=== PATIENT | female | born 1940 | race Hispanic/Latino ===

== ENCOUNTER → 2018-03-27 | Outpatient (CLI) | payer MEDICARE | END | disposition home or self-care (01) | LOC: RAH 10:25 | PROVIDERS: ATTEND Orthopaedic Surgery | DX: M75.101 Unspecified rotator cuff tear or rupture of right shoulder, not specified as traumatic (principal); M12.811 Other specific arthropathies, not elsewhere classified, right shoulder; M62.511 Muscle wasting and atrophy, not elsewhere classified, right shoulder; M25.711 Osteophyte, right shoulder | CPT/HCPCS: 73221 ==

== ENCOUNTER → 2018-06-19 | Outpatient (CLI) | payer MEDICARE | END | disposition home or self-care (01) | LOC: RAH 13:33 | PROVIDERS: ATTEND Physical Medicine & Rehabilitation | DX: M51.36 Other intervertebral disc degeneration, lumbar region (principal); M41.85 Other forms of scoliosis, thoracolumbar region; M89.48 Other hypertrophic osteoarthropathy, other site; M48.061 Spinal stenosis, lumbar region without neurogenic claudication | CPT/HCPCS: 72110 ==

== ENCOUNTER → 2018-09-26 | Outpatient (CLI) | payer MEDICARE | END | disposition home or self-care (01) | LOC: RAH 13:30 | PROVIDERS: ATTEND Physical Medicine & Rehabilitation | DX: M51.17 Intervertebral disc disorders with radiculopathy, lumbosacral region (principal); M48.061 Spinal stenosis, lumbar region without neurogenic claudication; M47.816 Spondylosis without myelopathy or radiculopathy, lumbar region | CPT/HCPCS: 72148 ==

== ENCOUNTER → 2019-06-01 | Outpatient (CLI) | payer MEDICARE | END | disposition home or self-care (01) | LOC: SHCH 09:36 | PROVIDERS: ATTEND Internal Medicine Cardiovascular Disease | DX: I51.7 Cardiomegaly (principal); I25.10 Atherosclerotic heart disease of native coronary artery without angina pectoris | CPT/HCPCS: 93306; 93356 ==

== ENCOUNTER → 2019-06-05 | Outpatient (CLI) | payer MEDICARE ==
[~2019-06-05] VITALS: Ht 157.5 cm; Wt 77.1 kg
[~2019-06-05] MED LIST: REGADENOSON 0.4 MG/5 ML PF SYG IVP SCH
== END | disposition home or self-care (01) ==
LOC: SHCH 07:42
PROVIDERS: ATTEND Internal Medicine Cardiovascular Disease
DX: I25.10 Atherosclerotic heart disease of native coronary artery without angina pectoris (principal)
CPT/HCPCS: 78452; 93017; 96374; A9500 ×2; J2785

== ENCOUNTER 2019-06-26 08:32 | Day surgery (SDC) | payer MEDICARE ==
[2019-06-22 09:44] LABS: BASOPHILS % (AUTO) 0.1 % (0.0-5.0); EOSINOPHILS % (AUTO) 0.1 % (0.0-8.0); MEAN CORPUSCULAR HEMOGLOBIN 30.1 pg (27.0-33.0); MEAN CORPUSCULAR HGB CONC 31.8 g/dL (32.0-36.0); MEAN CORPUSCULAR VOLUME 94.7 fL (79-99); MONOCYTES % (AUTO) 6.5 % (3.0-13.0); NEUTROPHILS % (AUTO) 79.3 % (40.0-77.0); PLATELET COUNT (AUTO) 247 K/uL (130-400); RED BLOOD CELL COUNT(AUTO) 4.12 MIL/uL (4.00-5.50); WHITE BLOOD COUNT (AUTO) 11.5 K/uL (4.8-10.8)
[2019-06-22 09:48] VITALS: BP 151/66
[2019-06-22 10:00] LABS: INR 1.02 (0.85-1.15); PARTIAL THROMBOPLASTIN TIME 22.6 SEC (26.3-35.5); PROTHROMBIN TIME 10.7 SEC (9.6-11.6)
[2019-06-22 10:02] LABS: POTASSIUM 4.3 mmol/L (3.5-5.1)
[2019-06-22 10:46] LABS: APPEARANCE,URINE Clear (CLEAR); BILIRUBIN,URINE Negative (NEGATIVE); COLOR,URINE Yellow (YELLOW); GLUCOSE, URINE (UA) Negative (NEGATIVE); KETONES,URINE Negative (NEGATIVE); LEUKOCYTE ESTERASE ,URINE Negative (NEGATIVE); NITRATE,URINE Negative (NEGATIVE); OCCULT BLOOD,URINE Negative (NEGATIVE); PH,URINE 6.5 (5.0-8.0); PROTEIN,URINE POS 2+ mg/dL (NEGATIVE)
[2019-06-22 11:29] LABS: BACTERIA,URINE Many /HPF (None Seen); RBC,URINE 0-1 /HPF (0-1)
--- NOTE | 2019-06-25 13:24 | NUR ---
LABS WBC 11.[address] GODWIN, MESSAGE LEFT WITH CARROLL . AWAITING FOR FURTHER ORDERS IF ANY.
--- NOTE | 2019-06-25 13:54 | NUR ---
LABS RECEIVED CALL BACK PER DR. GODWIN NO FURTHER ORDERS
[2019-06-26] VITALS (9 sets, daily range): BP systolic 122–188; BP diastolic 44–94
[~2019-06-26] VITALS: Ht 157.5 cm; Wt 77.6 kg
[~2019-06-26 08:32] MED LIST changes: +ALPR0.255 PO; +ASPI-556 PO; +BRIM5DRO OU; +CITA10TA7 PO; +CYAN100T45 PO; +DILT180C86 PO; +ERGO500014 PO; +FERR-82 PO; +FURO20TA4 PO; +GABA-531 PO; +LATA7.5D OU; +NITR0.4T50 SL; -REGADENOSON 0.4 MG/5 ML PF SYG IVP SCH; +ROSU10TA28 PO; +SODIUM CHLORIDE 0.9% 500ML 500 ML IV SCH; +TRAM50TA4 PO
--- NOTE | 2019-06-26 11:05 | NUR ---
REPORT REPORT RECEIVED FROM Samuel KHOURY RN. PT SITTING ON EDGE OF BED. DENIES ANY PAIN, SOB. AT BEDSIDE.
[2019-06-26] MEDS ORDERED: FENTANYL CITRATE PF 50 MCG/1 ML 2ML VIAL ONE (11:52)
[2019-06-26] MEDS ORDERED: MIDAZOLAM HCL 1 MG/ML 2ML VIAL ONE (11:52)
[2019-06-26] MEDS ORDERED: LIDOCAINE HCL 2% 20ML ONE (11:52)
[2019-06-26] MEDS ORDERED: IOHEXOL 350 MG/ML 100ML INFUS..BTL IV ONE (11:52)
[2019-06-26] MEDS ORDERED: HEPARIN SODIUM 1000UNIT/ML 10ML VIAL ONE (11:52)
--- NOTE | 2019-06-26 12:00 | NUR ---
PROCEDURE PT TAKEN TO PROCEDURE BY PLAYER DEVELOPMENT MANAGER STAFF.
[2019-06-26] MEDS ORDERED: NITROGLYCERIN 2 MG/VIAL VIAL IV ONE (12:09)
[2019-06-26] MEDS ORDERED: NICARDIPINE HCL 25 MG/10 ML ML IV ONE (12:10)
[2019-06-26] MEDS ORDERED: SODIUM CHLORIDE 0.9% 1000ML 1,000 ML IV ONE (12:34)
[2019-06-26] MEDS ORDERED: HYDRALAZINE HCL 20 MG/ML VIAL ONE (12:54)
[2019-06-26] MEDS ORDERED: LABETALOL HCL 5 MG/ML 20ML VIAL IV ONE (12:59)
[2019-06-26] MEDS ORDERED: ACETAMINOPHEN 325 MG TAB ONE (13:45)
--- NOTE | 2019-06-26 15:02 | NUR ---
DISCHARGE ORAL AND WRITTEN DISCHARGE INSTRUCTIONS GIVEN TO PT AND PTS . BOTH VERBALIZED UNDERSTANDING. NO OTHER QUESTIONS AT THIS TIME.
== END 2019-06-26 16:45 | disposition home or self-care (01) ==
LOC: DAH 08:32
PROVIDERS: ATTEND Internal Medicine Cardiovascular Disease
DX: I25.10 Atherosclerotic heart disease of native coronary artery without angina pectoris (principal); I10 Essential (primary) hypertension; E78.5 Hyperlipidemia, unspecified; M19.90 Unspecified osteoarthritis, unspecified site; Z88.5 Allergy status to narcotic agent; Z88.1 Allergy status to other antibiotic agents; Z88.8 Allergy status to other drugs, medicaments and biological substances; Z79.82 Long term (current) use of aspirin; Z79.899 Other long term (current) drug therapy; Z98.890 Other specified postprocedural states; Z83.3 Family history of diabetes mellitus; Z79.01 Long term (current) use of anticoagulants
CPT/HCPCS: 36415; 71045; 80048; 81001; 85025; 85610; 85730; 93005; 93458; A4215; A4216; A4221; A4222; A4223 ×3; A4606; A4663; C1760; C1894 ×2; J0360; J1644; J2250; J3010; J3490 ×3; J7030; Q9965; Q9967; 99156; 99157

== ENCOUNTER → 2019-09-27 | Outpatient (CLI) | payer MEDICARE ==
[~2019-09-27] MED LIST changes: -CYAN100T45 PO; -SODIUM CHLORIDE 0.9% 500ML 500 ML IV SCH; +[UNRECOGNIZED DRUG - CODE] PO
== END | disposition home or self-care (01) ==
LOC: RAH 14:05
PROVIDERS: ATTEND Physical Medicine & Rehabilitation
DX: M51.26 Other intervertebral disc displacement, lumbar region (principal); M54.2 Cervicalgia
CPT/HCPCS: 72141; 72148

== ENCOUNTER → 2019-11-02 | Outpatient (CLI) | payer MEDICARE | END | disposition home or self-care (01) | DX: R60.9 Edema, unspecified (principal) ==

== ENCOUNTER 2020-02-22 12:01 | Inpatient (IN) | payer MEDICARE ==
[~2020-02-22] VITALS: Ht 157.5 cm; Wt 75.5 kg
[~2020-02-22 12:01] MED LIST changes: +CYAN100T45 PO; -[UNRECOGNIZED DRUG - CODE] PO
[2020-02-22 13:00] LABS: BASOPHILS % (AUTO) 0.4 % (0.0-5.0); EOSINOPHILS % (AUTO) 0.7 % (0.0-8.0); HEMATOCRIT 36.3 % (36-48); LYMPHOCYTES % (AUTO) 19.7 % (21.0-51.0); MEAN CORPUSCULAR HEMOGLOBIN 30.9 pg (27.0-33.0); MEAN CORPUSCULAR HGB CONC 33.1 g/dL (32.0-36.0); MEAN CORPUSCULAR VOLUME 93.6 fL (79-99); MONOCYTES % (AUTO) 6.2 % (3.0-13.0); NEUTROPHILS % (AUTO) 72.6 % (40.0-77.0); PLATELET COUNT (AUTO) 220 K/uL (130-400); RED BLOOD CELL COUNT(AUTO) 3.88 MIL/uL (4.00-5.50); RED CELL DISTRIBUTION WIDTH 13.2 % (11.0-15.5); WHITE BLOOD COUNT (AUTO) 9.6 K/uL (4.8-10.8)
[2020-02-22 13:15] LABS: INR 0.97 (0.85-1.15); PARTIAL THROMBOPLASTIN TIME 22.5 SEC (26.3-35.5); PROTHROMBIN TIME 10.5 SEC (9.6-11.6)
[2020-02-22 13:16] LABS: POTASSIUM 3.3 mmol/L (3.5-5.1)
[2020-02-22 13:22] LABS: ALBUMIN 3.5 g/dL (3.5-5.0); BILIRUBIN,TOTAL 0.3 mg/dL (0.2-1.0); TOTAL PROTEIN, SERUM 7.1 g/dL (6.0-8.3)
[2020-02-22] MEDS ORDERED: SODIUM CHLORIDE 0.9% 250 ML IV ONE (13:37)
[2020-02-22] MEDS ORDERED: ACETAMINOPHEN 325 MG TAB PO PRN ×2 (16:00)
[2020-02-22] MEDS ORDERED: MORPHINE SULFATE 2 MG/ML 1ML SYG IV PRN (16:00)
[2020-02-22] MEDS ORDERED: MAG HYDROX/AL HYDROX/SIMETH ES 30 ML SUSP UDCUP PO PRN (16:00)
[2020-02-22] MEDS ORDERED: ZOLPIDEM TARTRATE 5 MG TAB PO PRN (16:00)
[2020-02-22] MEDS ORDERED: NITROGLYCERIN 0.4 MG SL TAB SL PRN (16:00)
[2020-02-22] MEDS ORDERED: LACTULOSE 20 GM/30 ML UDCUP PO PRN (16:00)
[2020-02-22] MEDS: SODIUM CHLORIDE 0.9% 1000ML 1,000 ML IV SCH (16:00)
[2020-02-22] MEDS ORDERED: HYDRALAZINE HCL 20 MG/ML VIAL IV PRN (16:00)
[2020-02-22] MEDS ORDERED: ONDANSETRON HCL 4 MG/2 ML VIAL IV PRN (16:00)
[2020-02-22 16:59] LABS: CHOLESTEROL 168 mg/dL (<200); HDL CHOLESTEROL 127 mg/dL (35-85); LDL DIRECT 67 mg/dL (0-99); TRIGLYCERIDES 94 mg/dL (30-200)
[2020-02-22 18:44] LABS: INR 0.93 (0.85-1.15); PARTIAL THROMBOPLASTIN TIME 22.2 SEC (26.3-35.5); PROTHROMBIN TIME 10.1 SEC (9.6-11.6)
[2020-02-22] MEDS ORDERED: METOPROLOL TARTRATE 25 MG TAB PO SCH (21:00)
[2020-02-22] MEDS ORDERED: FAMOTIDINE/PF 20 MG/2 ML VIAL IV ONE (22:34)
[2020-02-22] MEDS ORDERED: METOPROLOL TARTRATE 25 MG TAB ONE (22:34)
[2020-02-22] MEDS ORDERED: FAMOTIDINE 20MG TAB 20 MG TAB ONE (22:43)
[2020-02-23 01:25] VITALS: BP 160/61
[2020-02-23] MEDS: SODIUM CHLORIDE 0.9% 1000ML 1,000 ML IV SCH ×3 (01:32→21:53)
[2020-02-23] MEDS ORDERED: CETI10TA57 PO (01:47)
[2020-02-23] MEDS ORDERED: OMEP20TA25 PO (01:47)
[2020-02-23] MEDS ORDERED: HYDR-4153 PO (01:47)
[2020-02-23 03:59] VITALS: BP 177/83
[2020-02-23] MEDS ORDERED: POTASSIUM CHLORIDE 10MEQ/100ML 100 ML IV PRN (04:45)
[2020-02-23] MEDS ORDERED: LIDOCAINE HCL-MPF 1% 2ML VIAL IV PRN (04:45)
[2020-02-23] MEDS ORDERED: POTASSIUM CHLORIDE 10% ELIXIR 20 MEQ/15 ML UDCUP PO PRN (04:45)
[2020-02-23] MEDS ORDERED: ALPRAZOLAM 0.25 MG TABLET PO PRN (05:45)
[2020-02-23 06:15] LABS: BASOPHILS % (AUTO) 0.4 % (0.0-5.0); EOSINOPHILS % (AUTO) 1.4 % (0.0-8.0); LYMPHOCYTES % (AUTO) 34.9 % (21.0-51.0); MEAN CORPUSCULAR HEMOGLOBIN 30.8 pg (27.0-33.0); MEAN CORPUSCULAR HGB CONC 33.4 g/dL (32.0-36.0); MEAN CORPUSCULAR VOLUME 92.2 fL (79-99); MONOCYTES % (AUTO) 5.4 % (3.0-13.0); NEUTROPHILS % (AUTO) 57.7 % (40.0-77.0); PLATELET COUNT (AUTO) 231 K/uL (130-400); RED BLOOD CELL COUNT(AUTO) 4.12 MIL/uL (4.00-5.50); RED CELL DISTRIBUTION WIDTH 13.4 % (11.0-15.5); WHITE BLOOD COUNT (AUTO) 8.1 K/uL (4.8-10.8)
[2020-02-23] MEDS ORDERED: FAMOTIDINE/PF 20 MG/2 ML VIAL IV SCH (09:00)
[2020-02-23 09:02] VITALS: BP 162/76
[2020-02-23] MEDS: FUROSEMIDE 20 MG TABLET PO SCH ×2 (09:22→21:48)
[2020-02-23] MEDS: HYDRALAZINE HCL 25 MG TABLET PO SCH ×2 (09:22→21:49)
[2020-02-23] MEDS: ASPIRIN 81MG TAB.CHEW PO SCH (09:22)
[2020-02-23] MEDS: POTASSIUM CHLORIDE 20 MEQ ERTAB PO PRN ×2 (09:24→13:30)
[2020-02-23] MEDS: CETIRIZINE HCL 5 MG TABLET PO SCH (09:24)
[2020-02-23] MEDS: TRAMADOL HCL 50 MG TABLET PO SCH (09:24)
[2020-02-23] MEDS: ENOXAPARIN SODIUM 80 MG/0.8 ML SQ SCH (09:25)
[2020-02-23] MEDS: PANTOPRAZOLE SODIUM 40 MG TABLET.DR PO SCH (09:25)
[2020-02-23 12:20] VITALS: BP 135/79
[2020-02-23 18:32] VITALS: BP 133/73
[2020-02-23 20:00] VITALS: BP 158/88
[2020-02-24] VITALS: BP 148/66
[2020-02-24 04:00] VITALS: BP 142/62
[2020-02-24 05:59] LABS: BASOPHILS % (AUTO) 0.5 % (0.0-5.0); EOSINOPHILS % (AUTO) 2.9 % (0.0-8.0); HEMATOCRIT 36.3 % (36-48); LYMPHOCYTES % (AUTO) 46.4 % (21.0-51.0); MEAN CORPUSCULAR HEMOGLOBIN 30.8 pg (27.0-33.0); MEAN CORPUSCULAR HGB CONC 33.1 g/dL (32.0-36.0); MEAN CORPUSCULAR VOLUME 93.3 fL (79-99); MONOCYTES % (AUTO) 4.5 % (3.0-13.0); NEUTROPHILS % (AUTO) 45.4 % (40.0-77.0); PLATELET COUNT (AUTO) 212 K/uL (130-400); RED BLOOD CELL COUNT(AUTO) 3.89 MIL/uL (4.00-5.50); RED CELL DISTRIBUTION WIDTH 13.8 % (11.0-15.5); WHITE BLOOD COUNT (AUTO) 5.8 K/uL (4.8-10.8)
[2020-02-24 06:17] LABS: CARBON DIOXIDE 28 mmol/L (21-32); CHLORIDE 109 mmol/L (101-111); CREATININE 0.9 mg/dL (0.5-1.5); GLOMERULAR FILTR. RATE CALC 64 mL/min (>60); GLUCOSE,RANDOM 93 mg/dL (70-105); POTASSIUM 3.7 mmol/L (3.5-5.1); SODIUM SERUM 142 mmol/L (136-145); UREA NITROGEN, BLOOD 16 mg/dL (7-18)
--- NOTE | 2020-02-24 08:00 | NUR ---
cm note pt resides at home with spouse independent with ambulation, except for uses cane, no home services. dc plan is back to home .no dc needs. Addendum: 02/24/20 at 1746 by ASMITA COSTA CM Amended: Links added.
[2020-02-24] MEDS: PANTOPRAZOLE SODIUM 40 MG TABLET.DR PO SCH (08:47)
[2020-02-24] MEDS: ASPIRIN 81MG TAB.CHEW PO SCH (08:47)
[2020-02-24] MEDS: CETIRIZINE HCL 5 MG TABLET PO SCH (08:48)
[2020-02-24] MEDS: FUROSEMIDE 20 MG TABLET PO SCH (08:48)
[2020-02-24] MEDS: HYDRALAZINE HCL 25 MG TABLET PO SCH (08:48)
[2020-02-24] MEDS: ENOXAPARIN SODIUM 80 MG/0.8 ML SQ SCH (08:51)
[2020-02-24] MEDS: POTASSIUM CHLORIDE 20 MEQ ERTAB PO PRN ×2 (08:52→13:56)
[2020-02-24] MEDS: TRAMADOL HCL 50 MG TABLET PO SCH ×2 (08:52→12:44)
[2020-02-24] MEDS: SODIUM CHLORIDE 0.9% 1000ML 1,000 ML IV SCH (08:54)
--- NOTE | 2020-02-24 15:08 | NUR ---
PT PREPARED FOR DISCHARGE. TELEMETRY AND IV REMOVED W/O DIFFICULTY OR COMPLICATION. PT AND STATES UNDERSTANDING OF DISCHARGE INSTRUCTIONS INCLUDING STOPPING GABAPENTIN AND FOLLOW UP APPTS WITH DR ADAMS AND PCP. PT SON ALSO UNDERSTANDS DISCHARGE INSTRUCTIONS. PT DISMISSED BY W/C IN GOOD CONDITION ACCOMPANIED BY HER
== END 2020-02-24 15:15 | disposition home or self-care (01) | DRG 311 ==
LOC: EDH 12:01 → EDHIP 15:54 → 3DH 02-23 00:25
PROVIDERS: ADMIT Hospitalist; ATTEND Hospitalist
DX: I20.0 Unstable angina (principal); N17.9 Acute kidney failure, unspecified; E86.9 Volume depletion, unspecified; E87.6 Hypokalemia; E11.9 Type 2 diabetes mellitus without complications; I10 Essential (primary) hypertension; I95.9 Hypotension, unspecified; T46.3X5A Adverse effect of coronary vasodilators, initial encounter; I49.3 Ventricular premature depolarization; Z88.5 Allergy status to narcotic agent; Z90.49 Acquired absence of other specified parts of digestive tract; Z88.1 Allergy status to other antibiotic agents; Z88.8 Allergy status to other drugs, medicaments and biological substances; Y92.89 Other specified places as the place of occurrence of the external cause
CPT/HCPCS: 36415; 71045; 80048; 80053; 80061; 82550; 83735; 84145; 84484; 85025; 85378; 85610; 85730; 93005; 93306; 93356; 93880; G0378; J1650; J3490; J7050

== ENCOUNTER → 2021-03-25 | Outpatient (CLI) | payer OTHER ==
[~2021-03-25] MED LIST changes: -BRIM5DRO OU; +CETI10TA57 PO; -CITA10TA7 PO; -CYAN100T45 PO; -DILT180C86 PO; -ERGO500014 PO; -GABA-531 PO; +HYDR-4153 PO; -LATA7.5D OU; +OMEP20TA25 PO
== END | disposition home or self-care (01) ==
LOC: OIH 10:52
PROVIDERS: ATTEND Internal Medicine
DX: M19.012 Primary osteoarthritis, left shoulder (principal)
CPT/HCPCS: 73030

== ENCOUNTER → 2021-04-09 | Outpatient (CLI) | payer OTHER | END | disposition home or self-care (01) | LOC: OIH 13:23 | PROVIDERS: ATTEND Internal Medicine | DX: M17.12 Unilateral primary osteoarthritis, left knee (principal) | CPT/HCPCS: 73560 ==

== ENCOUNTER → 2021-09-22 | Outpatient (CLI) | payer OTHER, MEDICARE ==
[~2021-09-22] MED LIST changes: +OMEP20TA20 PO; -OMEP20TA25 PO
== END | disposition home or self-care (01) ==
LOC: RAH 13:45
PROVIDERS: ATTEND Physical Medicine & Rehabilitation
DX: I70.213 Atherosclerosis of native arteries of extremities with intermittent claudication, bilateral legs (principal)
CPT/HCPCS: 93925

== ENCOUNTER → 2021-12-23 | Outpatient (CLI) | payer OTHER, MEDICARE | END | disposition home or self-care (01) | LOC: RAH 09:31 | PROVIDERS: ATTEND Physician Assistant | DX: M54.51 Vertebrogenic low back pain (principal); M62.81 Muscle weakness (generalized); M99.05 Segmental and somatic dysfunction of pelvic region | CPT/HCPCS: 72114; 73522 ==

== ENCOUNTER 2022-05-21 18:40 | Emergency (ER) | payer OTHER, MEDICARE ==
[~2022-05-21] VITALS: Ht 157.5 cm; Wt 80.7 kg
[2022-05-21] MEDS ORDERED: IBUP-2076 PO (20:27)
[2022-05-21 20:39] VITALS: BP 162/58
== END 2022-05-21 20:51 ==
LOC: EDH 18:40
DX: S80.02XA Contusion of left knee, initial encounter (principal); Z88.0 Allergy status to penicillin; Z88.1 Allergy status to other antibiotic agents; Z88.2 Allergy status to sulfonamides; Z88.5 Allergy status to narcotic agent; Z88.8 Allergy status to other drugs, medicaments and biological substances; Z79.899 Other long term (current) drug therapy; Z79.82 Long term (current) use of aspirin; W01.0XXA Fall on same level from slipping, tripping and stumbling without subsequent striking against object, initial encounter; Y93.01 Activity, walking, marching and hiking; Y92.29 Other specified public building as the place of occurrence of the external cause; Y99.8 Other external cause status
CPT/HCPCS: 73562

== ENCOUNTER → 2022-08-31 | Outpatient (CLI) | payer OTHER, MEDICARE ==
[~2022-08-31] MED LIST changes: +IBUP-2076 PO
== END | disposition home or self-care (01) ==
LOC: SHCH 08:05
PROVIDERS: ATTEND Internal Medicine Cardiovascular Disease
DX: I11.9 Hypertensive heart disease without heart failure (principal); I25.10 Atherosclerotic heart disease of native coronary artery without angina pectoris; E78.5 Hyperlipidemia, unspecified
CPT/HCPCS: 93306

== ENCOUNTER → 2022-09-13 | Outpatient (CLI) | payer OTHER, MEDICARE ==
[2022-09-13 12:44] LABS: CREATININE 1.1 mg/dL (0.5-1.5); MAGNESIUM 2.1 mg/dL (1.80-2.40); POTASSIUM 4.4 mmol/L (3.5-5.1)
== END | disposition home or self-care (01) ==
LOC: LAB 08:45
PROVIDERS: ATTEND Internal Medicine Cardiovascular Disease
DX: I25.10 Atherosclerotic heart disease of native coronary artery without angina pectoris (principal); R09.89 Other specified symptoms and signs involving the circulatory and respiratory systems; I10 Essential (primary) hypertension
CPT/HCPCS: 36415; 80048; 83735; 83880

== ENCOUNTER → 2022-09-23 | Outpatient (CLI) | payer OTHER, MEDICARE ==
[~2022-09-23] MED LIST changes: +IOHEXOL 350 MG/ML 100ML INFUS..BTL IV ONE
== END | disposition home or self-care (01) ==
LOC: RAH 09:31
PROVIDERS: ATTEND Internal Medicine Cardiovascular Disease
DX: I25.10 Atherosclerotic heart disease of native coronary artery without angina pectoris (principal); M47.815 Spondylosis without myelopathy or radiculopathy, thoracolumbar region
CPT/HCPCS: 75574; Q9967

== ENCOUNTER 2023-07-25 04:52 | Emergency (ER) | payer OTHER, MEDICARE ==
[~2023-07-25] VITALS: Ht 157.5 cm; Wt 82.6 kg
[~2023-07-25 04:52] MED LIST changes: -HYDR-4153 PO; +HYDR25TA67 PO; -IOHEXOL 350 MG/ML 100ML INFUS..BTL IV ONE
[2023-07-25] MEDS ORDERED: BRIM5DRO21 OP (05:24)
[2023-07-25] MEDS ORDERED: FURO20TA4 PO (05:25)
[2023-07-25] MEDS ORDERED: GABA300C PO (05:26)
[2023-07-25] MEDS ORDERED: LATA2.5D14 OP (05:27)
[2023-07-25] MEDS ORDERED: GABA100C PO (05:27)
[2023-07-25] MEDS ORDERED: LORA0.5T83 PO (05:29)
[2023-07-25] MEDS ORDERED: MELO-108 PO (05:29)
[2023-07-25] MEDS ORDERED: PANT40GR PO (05:30)
[2023-07-25] MEDS ORDERED: QUET50TA24 PO (05:31)
[2023-07-25] MEDS ORDERED: ERGO500093 PO (05:34)
[2023-07-25 05:38] LABS: ALBUMIN 3.8 g/dL (3.5-5.0); BILIRUBIN,TOTAL 0.4 mg/dL (0.2-1.0); CREATININE 1.1 mg/dL (0.5-1.0); POTASSIUM 3.8 mmol/L (3.5-5.1); TOTAL PROTEIN, SERUM 7.6 g/dL (6.0-8.3)
[2023-07-25 06:10] LABS: BASOPHILS # (AUTO) 0.03 K/uL (0.00-0.20); BASOPHILS % (AUTO) 0.2 % (0.0-5.0); EOSINOPHILS # (AUTO) 0.17 K/uL (0.00-0.70); EOSINOPHILS % (AUTO) 1.1 % (0.0-8.0); HEMATOCRIT 35.2 % (36-48); IMMATURE GRANULOCYTE ABSOLUTE 0.09 K/uL (0-1); LYMPHOCYTES # (AUTO) 1.9 K/uL (1.0-4.8); LYMPHOCYTES % (AUTO) 12.6 % (21.0-51.0); MEAN CORPUSCULAR HEMOGLOBIN 31.9 pg (27.0-33.0); MEAN CORPUSCULAR HGB CONC 34.1 g/dL (32.0-36.0); MEAN CORPUSCULAR VOLUME 93.6 fL (79-99); MONOCYTES % (AUTO) 6.5 % (3.0-13.0); NEUTROPHILS # (AUTO) 11.7 K/uL (1.8-7.7); PLATELET COUNT (AUTO) 278 K/uL (130-400); RED BLOOD CELL COUNT(AUTO) 3.76 MIL/uL (4.00-5.50); RED CELL DISTRIBUTION WIDTH 12.9 % (11.0-15.5); WHITE BLOOD COUNT (AUTO) 14.9 K/uL (4.8-10.8)
[2023-07-25 08:50] VITALS: BP 165/72; PULSE 73; RESP 18; O2SAT 97
[2023-07-25 08:55] LABS: APPEARANCE,URINE CLEAR (CLEAR); BILIRUBIN,URINE NEGATIVE (NEGATIVE); COLOR,URINE LIGHT-YELLOW (YELLOW); GLUCOSE, URINE (UA) NEGATIVE (NEGATIVE); KETONES,URINE NEGATIVE (NEGATIVE); LEUKOCYTE ESTERASE ,URINE 250 Leu/uL (NEGATIVE); NITRATE,URINE NEGATIVE (NEGATIVE); OCCULT BLOOD,URINE NEGATIVE (NEGATIVE); PH,URINE 5.5 (5.0-8.0); PROTEIN,URINE 50 mg/dL (NEGATIVE); UROBILINOGEN,URINE 0.2 mg/dL (0.2-1.0)
[2023-07-25 09:11] LABS: ADD UA MICROSCOPIC YES
[2023-07-25 09:12] LABS: BACTERIA,URINE RARE /HPF (None Seen); MUCUS,URINE RARE LPF (None Seen); RBC,URINE 0-1 /HPF (0-1); SQUAMOUS EPITHELIAL CELL,UR RARE /HPF (0-2)
== END 2023-07-25 09:05 | disposition home or self-care (01) ==
LOC: EDH 04:52
DX: S09.90XA Unspecified injury of head, initial encounter (principal); K52.9 Noninfective gastroenteritis and colitis, unspecified; A05.9 Bacterial foodborne intoxication, unspecified; E78.00 Pure hypercholesterolemia, unspecified; F03.90 Unspecified dementia, unspecified severity, without behavioral disturbance, psychotic disturbance, mood disturbance, and anxiety; I10 Essential (primary) hypertension; I25.10 Atherosclerotic heart disease of native coronary artery without angina pectoris; K21.9 Gastro-esophageal reflux disease without esophagitis; Z79.1 Long term (current) use of non-steroidal anti-inflammatories (NSAID); Z79.82 Long term (current) use of aspirin; Z79.899 Other long term (current) drug therapy; Z88.0 Allergy status to penicillin; Z88.1 Allergy status to other antibiotic agents; Z88.2 Allergy status to sulfonamides; Z88.5 Allergy status to narcotic agent; Z90.49 Acquired absence of other specified parts of digestive tract; W18.39XA Other fall on same level, initial encounter; Y93.01 Activity, walking, marching and hiking; Y92.89 Other specified places as the place of occurrence of the external cause; Y99.8 Other external cause status
CPT/HCPCS: 36415; 70450; 74176; 80053; 81001; 83690; 85025; 87077; 87088; 87186

== ENCOUNTER → 2024-02-04 | Outpatient (CLI) | payer OTHER, MEDICARE ==
[~2024-02-04] MED LIST changes: +BRIM5DRO21 OP; +ERGO500093 PO; +GABA100C PO; +GABA300C PO; +LATA2.5D14 OP; +LORA0.5T83 PO; +MELO-108 PO; +PANT40GR PO; +QUET50TA24 PO; -ROSU10TA28 PO; +ROSU10TA72 PO
== END | disposition home or self-care (01) ==
LOC: SHCH 12:11
PROVIDERS: ATTEND Internal Medicine Cardiovascular Disease
DX: I73.9 Peripheral vascular disease, unspecified (principal); R60.9 Edema, unspecified; K21.9 Gastro-esophageal reflux disease without esophagitis
CPT/HCPCS: 93925

== ENCOUNTER 2024-05-28 16:15 | Emergency (ER) | payer OTHER, MEDICARE ==
[~2024-05-28] VITALS: Ht 157.5 cm; Wt 77.1 kg
--- NOTE | 2024-05-28 16:33 | ERN ---
ED Note History of Present Illness Stated Complaint: OTHER Chief Complaint: Other Problems Time Seen by MD: 16:26 Dictation: PATIENT IS AN 83-YEAR-OLD FEMALE COMING IN FROM A LOCAL PRIMARY CARE DOCTOR'S OFFICE FEELING SHAKY AND HAVING CHILLS THIS MORNING. SHE STATES IT GOT BETTER IN THE EARLY AFTERNOON AND THEN CAME BACK LATER THIS AFTERNOON. SHE ALSO STATES SHE IS HAVING SOME RIGHT LATERAL ANTERIOR THIGH AND LEG PAIN. DENIES ANY RASH NO FEVER NO NAUSEA VOMITING NO CHEST PAIN NO BACK PAIN NO SOB. Allergies: Coded Allergies: Nitrofurantoin Macrocrystal (Unverified Allergy, Intermediate, RASH, ITCHING, 08/27/11) ciprofloxacin (Unverified Allergy, Intermediate, RASH, ITCHING, 08/27/11) moxifloxacin HCl (Unverified Allergy, Intermediate, RASH,ITCHING, 08/27/11) codeine (Unverified Allergy, Mild, FAINTING, 08/27/11) amoxicillin (Unverified Allergy, Unknown, 06/22/19) escitalopram (Unverified Allergy, Unknown, 07/25/23) linaclotide (Unverified Allergy, Unknown, 07/25/23) loratadine (Unverified Allergy, Unknown, 07/25/23) pseudoephedrine (Unverified Allergy, Unknown, 07/25/23) sulfamethoxazole (Unverified Allergy, Unknown, 06/22/19) trimethoprim (Unverified Allergy, Unknown, 06/22/19) Home Meds Active Scripts Ibuprofen (Ibuprofen) 400 Mg Tablet, 400 MG PO TIDP, #30 TAB Prov:LAWRENCE DAMON MD 05/21/22 Reported Medications Ergocalciferol (Vitamin D2) (Vitamin D2) 1,250 Mcg (64757 Unit) Capsule, 1250 MCG PO QWEEK, CAP 07/25/23 Quetiapine Fumarate (Quetiapine Fumarate) 50 Mg Tablet, 50 MG PO HS, TAB 07/25/23 Pantoprazole Sodium (Pantoprazole Sodium) 40 Mg Granpkt.dr, 40 MG PO AD PRN for ABDOMINAL PAIN, PACK 07/25/23 Meloxicam (Meloxicam) 15 Mg Tablet, 15 MG PO DAILY, TAB 07/25/23 Lorazepam (Ativan) 0.5 Mg Tablet, 0.5 MG PO AD PRN for ANXIETY/AGITATION, TAB 07/25/23 Latanoprost (Latanoprost) 0.005 % Drops, 2.5 ML OP BID, DROP 07/25/23 Gabapentin (Neurontin) 100 Mg Capsule, 100 MG PO TID PRN for PAIN, CAP 07/25/23 Gabapentin (Neurontin) 300 Mg Capsule, 300 MG PO HS, CAP 07/25/23 Furosemide (Furosemide) 20 Mg Tablet, 20 MG PO DAILY, TAB 07/25/23 Brimonidine Tartrate/Timolol (Brimonidine-Timolol 0.2%-0.5%) 0.2 %-0.5 % Drops, 5 ML OP BID, DROP 07/25/23 Cetirizine HCl (Cetirizine HCl) 10 Mg Tablet, 10 MG PO DAILY, TAB 02/23/20 Hydralazine HCl (Hydralazine HCl) 25 Mg Tablet, 25 MG PO BID, TAB 02/23/20 Omeprazole (Omeprazole) 20 Mg Tablet.dr, 20 MG PO DAILY, TAB 02/23/20 Aspirin (Aspir 81) 81 Mg Tablet.dr, 81 MG PO DAILY, TAB 06/22/19 Tramadol Hcl (Tramadol HCl) 50 Mg Tablet, 50 MG PO DAILY, TAB 06/22/19 Furosemide (Furosemide) 20 Mg Tablet, 20 MG PO BID, TAB 06/22/19 Rosuvastatin Calcium (Rosuvastatin Calcium) 10 Mg Tablet, 10 MG PO DAILY, TAB 06/22/19 Nitroglycerin (Nitroglycerin) 0.4 Mg Tab.subl, 0.4 MG SL AD PRN for CHEST PAIN, TAB.SL 06/22/19 Ferrous Sulfate (Iron) 325 Mg Tablet, 325 MG PO DAILY, TAB 06/22/19 Alprazolam (Alprazolam) 0.25 Mg Tablet, 1-2 TAB PO BID PRN for ANXIETY/AGITATION, TAB 06/22/19 Past Medical History Past Medical History: Anxiety, Diabetes-Type II, High Cholesterol, Hypertension Additional Past Medical Hx: VIT D DEF, HARD OF HEARING Surgical History: Other Surgical History Other: R KNEE SX Social History: Lives in Assisted Living History: Not Applicable RN Note Reviewed/Agreed w/PFSH: Yes Review of System Dictation CONSTITUTIONAL: NEGATIVE EXCEPT FOR HPI WEEK/SHAKY/CHILLS HEAD/FACE: NEGATIVE EXCEPT FOR HPI EENT: NEGATIVE EXCEPT FOR HPI RESPIRATORY: NEGATIVE EXCEPT FOR HPI GASTROINTESTINAL/ABDOMINAL: NEGATIVE EXCEPT FOR HPI GENITOURINARY: NEGATIVE EXCEPT FOR HPI MUSCULOSKELETAL: NEGATIVE EXCEPT FOR HPI RIGHT LATERAL THIGH PAIN INTEGUMENTARY: NEGATIVE EXCEPT FOR HPI NEUROLOGICAL/PSYCH: NEGATIVE EXCEPT FOR HPI HEMATOLOGIC/LYMPHATIC: NEGATIVE EXCEPT FOR HPI ALL SYSTEMS NEGATIVE, EXCEPT NOTED ABOVE. 13 POINT REVIEW OF SYSTEMS ASSESSED AND ALL NEGATIVE EXCEPT FOR ABOVE. Initial Vital Sign VS Vital Signs Date Time Temp Pulse Resp B/P (MAP) Pulse Ox O2 Delivery O2 Flow Rate FiO2 05/28/24 16:18 97.9 81 16 173/75 96 Room Air 0 05/28/24 16:59 21 Physical Exam Dictation VITAL SIGNS REVIEWED GENERAL APPEARANCE: ALERT, ORIENTED X 3ONLY FOCAL PAIN IS RIGHT LATERAL THIGH PAIN HEAD AND FACE: NON-TRAUMATIC. EYES: PERRL, PINK CONJUNCTIVAS, EYELID NO TRAUMA, ANTERIOR CHAMBER WITH ARCUS SENILIS. EARS: PINNAS INTACT AND NO SIGNS OF TRAUMA OR ERYTHEMA EAR CANALS CLEAR AND NO DISCHARGE TM NO ERYTHEMA NOSE: NO DISCHARGE, NO BLEEDING. OROPHARYNX: MOUTH NORMAL, TONGUE PINK, PHARYNX CLEAR,NO ERYTHEMA, TONSILS NO EXUDATES, NO ABSCESSES NOTED, MUCOUS MEMBRANE MOIST NECK: SUPPLE, NON-TENDER, NO THYROMEGALY, NO MASSES, NO JVD, NO BRUITS BREAST:DEFERRED CHEST:NO TENDERNESS, NO CREPITUS, NO PARADOXICAL MOVEMENT, NO RETRACTIONS LUNGS:CLEAR, WELL-VENTILATED, SYMMETRIC, NO RALES, NO WHEEZING, NO RHONCHI, NO STRIDOR, GOOD BREATH SOUNDS BILATERALLY HEART: REGULAR RATE, REGULAR RHYTHM, NO MURMUR, NO GALLOPS VASCULAR: NO PERIPHERAL EDEMA, ABDOMEN: SOFT, POSITIVE BOWEL SOUNDS, NONDISTENDED, NO GUARDING, NONTENDER, NO REBOUND, NO MASSES NO HEPATOMEGALY, NO SPLENOMEGALY, NO SILVERIO'S SIGN, NO HERNIAS. RECTAL: DEFERRED GENITAL: DEFERRED NEUROLOGICAL: NORMAL SPEECH, MOTOR FUNCTION INTACT, SENSORY FUNCTION INTACT MUSCULOSKELETAL: NECK NONTENDER, FULL RANGE OF MOTION, BACK NONTENDER, FULL RANGE OF MOTION, EXTREMITIES: NONTENDER, FULL RANGE OF MOTION SKIN: COLOR PINK, DRY, NO TURGOR, NO RASH, NO LACERATIONS, NO ABRASIONS, NO CONTUSIONS. LYMPHATIC: DEFERRED Results (Laboratory/Radiology) Laboratory/Radiology Laboratory Tests Test 05/28/24 17:14 05/28/24 17:35 05/28/24 19:32 White Blood Count 11.2 K/uL (4.8-10.8) H Red Blood Count 3.57 MIL/uL (4.00-5.50) L Hemoglobin 11.3 g/dL (12.0-16.0) L Hematocrit 33.6 % (36-48) L Mean Corpuscular Volume 94.1 fL (79-99) Mean Corpuscular Hemoglobin 31.7 pg (27.0-33.0) Mean Corpuscular Hemoglobin Concent 33.6 g/dL (32.0-36.0) Red Cell Distribution Width 13.2 % (11.0-15.5) Platelet Count 212 K/uL (130-400) Mean Platelet Volume 9.9 fL (7.5-10.5) Immature Granulocyte % (Auto) 0.4 % (0-1) Neutrophils (%) (Auto) 88.3 % (40.0-77.0) H Lymphocytes (%) (Auto) 9.0 % (21.0-51.0) L Monocytes (%) (Auto) 0.8 % (3.0-13.0) L Eosinophils (%) (Auto) 1.2 % (0.0-8.0) Basophils (%) (Auto) 0.3 % (0.0-5.0) Neutrophils # (Auto) 9.9 K/uL (1.8-7.7) H Lymphocytes # (Auto) 1.0 K/uL (1.0-4.8) Monocytes # (Auto) 0.1 K/uL (0.1-1.0) Eosinophils # (Auto) 0.13 K/uL (0.00-0.70) Basophils # (Auto) 0.03 K/uL (0.00-0.20) Absolute Immature Granulocyte (auto 0.05 K/uL (0-1) Nucleated Red Blood Cells 0.0 % (0.0-0.19) White Cell Morphology Comment See comments Sodium Level 139 mmol/L (136-145) Potassium Level 3.9 mmol/L (3.5-5.1) Chloride Level 102 mmol/L (101-111) Carbon Dioxide Level 29 mmol/L (21-32) Blood Urea Nitrogen 16 mg/dL (7-18) Creatinine 1.2 mg/dL (0.5-1.0) H Glomerular Filtration Rate Calc 45 mL/min (>90) Random Glucose 116 mg/dL (70-105) H Total Calcium 9.3 mg/dL (8.5-10.1) Troponin I High Sensitivity 32 ng/L (4-50) Influenza Type A Antigen Negative For Type A Influenza Type B Antigen Negative For Type B SARS-CoV-2 Antigen (Rapid) PRESUMPTIVE NEGATIVE Urine Color LIGHT-YELLOW (YELLOW) Urine Appearance CLOUDY (CLEAR) H Urine pH 6.0 (5.0-8.0) Urine Specific [place] 1.008 (1.001-1.031) Urine Protein 100 mg/dL (NEGATIVE) H Urine Glucose (UA) NEGATIVE mg/dL (NEGATIVE) Urine Ketones NEGATIVE mg/dL (NEGATIVE) Urine Occult Blood SMALL (NEGATIVE) H Urine Nitrate 2+ (NEGATIVE) H Urine Bilirubin NEGATIVE mg/dL (NEGATIVE) Urine Urobilinogen 0.2 mg/dL (0.2-1.0) Urine Leukocyte Esterase 500 Sammy/uL (NEGATIVE) H Urine RBC 6-10 /HPF (0-1) H Urine WBC TNTC /HPF (0-1) H Urine Squamous Epithelial Cells RARE /HPF (0-2) Urine Other Crystals (Auto) 2 /HPF (None Seen) Urine Bacteria RARE /HPF (None Seen) Urine Yeast FEW /HPF (None Seen) PORTABLE CHEST RADIOGRAPH INDICATION: SOB COMPARISON: 11/19/2021 FINDINGS: Heart size is normal. Mild calcific plaque is present along the aortic arch luna. The pulmonary vascularity and regan appear normal. No abnormal pulmonary parenchymal opacity or consolidation identified. No significant pleural effusion noted. No pneumothorax detected. IMPRESSION: No radiographic evidence for any acute cardiopulmonary process. Labs Reviewed?: Yes ED Course ED Course Orders Procedure Category Date Status Time Cbc With Differential LAB 05/28/24 Complete 16:31 Troponin I High LAB 05/28/24 Complete Sensitivity 16:31 Urinalysis Profile LAB 05/28/24 Complete 16:31 12 Lead Ekg Tracing- EKG 05/28/24 Logged Technical 16:31 0.9%Nacl 1000ml (Ns PHA 05/28/24 Complete 1000ml) 17:00 Chest 1vw RAD 05/28/24 Resulted 16:31 Basic Metabolic Panel LAB 05/28/24 Complete 16:31 Blood Cult SUZETTE 05/28/24 In Process 17:03 Acetaminophen 500mg PHA 05/28/24 Complete Tab (Tylenol 500mg T 17:30 Covid19 (Sars Antigen LAB 05/28/24 Complete Rapid) 17:28 Influenza Type A & B, LAB 05/28/24 Complete Rapid 17:28 Nurse Driven Willis ERON 05/28/24 In Process Removal Pro 19:29 Culture Urine SUZETTE 05/28/24 In Process 20:40 Ceftriaxone 1g Vial PHA 05/28/24 In Process (Rocephine 1g Inj) 22:00 Current Medications Medications (Trade) Dose Ordered Sig/Adela Route PRN Reason Start Time Stop Time Status Last Admin Dose Admin Acetaminophen (TYLenol 500MG TAB) 1,000 mg ONCE ONCE PO 05/28/24 17:30 05/28/24 17:31 DC 05/28/24 17:18 Ceftriaxone Sodium (ROCEphine 1G INJ) 1 gm ONCE ONCE IV 05/28/24 22:00 05/28/24 22:01 Sodium Chloride 1,000 ml @ 0 mls/hr ONCE ONCE IV 05/28/24 17:00 05/28/24 17:01 DC 05/28/24 17:17 Vital Signs Date Time Temp Pulse Resp B/P (MAP) Pulse Ox O2 Delivery O2 Flow Rate FiO2 05/28/24 20:32 99.9 84 20 154/77 95 Room Air* 0 21 05/28/24 19:31 100.8 80 20 168/70 95 Room Air* 0 05/28/24 17:18 102.9 05/28/24 16:59 102.9 93 20 175/67 95 Room Air* 0 05/28/24 16:18 97.9 81 16 173/75 96 Room Air 0 TWO THOUSAND TWO HUNDRED PATIENT WILL BE GIVEN ROCEPHIN AFTER SPEAK WITH KRISTINE PHARMACIST AND REVIEWING PATIENT HAS ALLERGIES. WE WILL GIVE DOSE OF ROCEPHIN PRIOR TO DISCHARGE HOME IF SHE TOLERATES I WE WILL SEND HER HOME WITH CEPHALEXIN AND TOLD TO SEE HER DOCTOR. Medical Decision Making MDM MDM: DIFFERENTIAL DIAGNOSIS: SEPSIS/URINARY TRACT INFECTION/SARS COVID/INFLUENZA/ELECTROLYTE IMBALANCE/ RATIONALE: TESTS CONSIDERED AND ORDERED SECONDARY TO SHARED DECISION MAKING INCLUDE: DEHYDRATION LABS PREVIOUS OUTSIDE RECORDS REVIEWED: OLD ER VISITS. RISK OF COMPLICATION AND/OR MORBIDITY OR MORTALITY OF PATIENT MANAGEMENT: NONE MEDICATIONS-PER MEDICATION RECONCILIATION NEED FOR HOSPITALIZATION: PATIENT DOES NOT MEET CRITERIA FOR HOSPITALIZATION. NO NEED FOR EMERGENCY MAJOR/MINOR SURGERY: NO THERE ARE NO SOCIAL CONCERNS WITH THIS PATIENT. PRESCRIPTION DRUG MANAGEMENT KEFLEX PRESCRIPTIONS WILL INCLUDE SYMPTOMATIC CARE PATIENT'S PRIOR EXTERNAL MEDICAL RECORDS FROM OTHER ER VISITS WERE REVIEWED BY ME INDICATED. PRIOR TESTING AND RESULTS FROM PREVIOUS VISITS WERE REVIEWED. PRIOR TESTS WERE TAKEN INTO ACCOUNT WITH MEDICAL DECISION MAKING AND RESOURCE UTILIZATION, INDEPENDENT HISTORIAN/HISTORIANS WERE USED TO OBTAIN COMPLETE MEDICAL HISTORY. I INDEPENDENTLY INTERPRETED THE TEST THAT WERE PERFORMED, RESULTS WERE REVIEWED BY ME AND CONSIDERED FINDINGS ON RADIOLOGY IF ORDERED. MEDICAL MANAGEMENT AND EXAMINATION INTERPRETATION DISCUSSIONS WERE HAD BY ME WITH OTHER QUALIFIED HEALTHCARE PROFESSIONALS INDICATED FOR THE PATIENT'S CARE. DX & DISP Disposition: Discharge Departure Impression: Primary Impression: Acute cystitis with hematuria Additional Impression: Stage 3 chronic kidney disease Condition: Stable Scripts Cephalexin (Cephalexin) 500 Mg Tablet 1 TAB PO TID for 7 Days, #21 TAB 0 Refills Prov: BHAVIK BECK [employer] TRUCK [employer]IVER 05/28/24 Additional Instructions: FOLLOW-UP WITH PRIMARY CARE PROVIDER IN 1 TO 2 DAYS. TAKE MEDICATIONS DIRECTED HERE IN THE EMERGENCY ROOM. OKAY TO CONTINUE HOME MEDICATIONS UNLESS OTHERWISE DISCUSSED DURING YOUR VISIT IN THE EMERGENCY ROOM TODAY. RETURN TO YOUR NEAREST EMERGENCY ROOM IF SYMPTOMS WORSEN OR IF THERE IS NO IMPROVEMENT. CALL 911 IF YOU NEED IMMEDIATE ASSISTANCE. TAKE TYLENOL OR MOTRIN [id number] NEEDED AND IF NO CONTRAINDICATIONS ARE PRESENT. INCREASE ORAL HYDRATION. A WOUND CULTURE OR URINE CULTURE WAS ORDERED HERE IN THE EMERGENCY ROOM DEPARTMENT PLEASE FOLLOW-UP WITH PRIMARY CARE PROVIDER AND ADVISE THEM TO GET REPEAT PORTS FROM OUR FACILITY. IF YOU HAD ANY LAURA WRAP/SPLINTS THAT WERE APPLIED HERE, PLEASE DO NOT REMOVE THEM UNTIL YOU SEE YOUR PRIMARY CARE OR SPECIALTY. TAKE ANTIBIOTICS DIRECTED UNTIL GONE. , INCREASE YOUR WATER INTAKE., FOLLOW UP WITH IN 1-2 DAYS Referrals: SHASHI CHOUDHARY MD (PCP) Time of Disposition: 22:02 I have reviewed the case, and I agree with, Diagnosis and Plan BHAVIK BECK NP May 28, 2024 16:33
[2024-05-28] MEDS: 0.9%NACL 1000ML 1,000 ML IV ONE (17:17)
[2024-05-28] MEDS: acetaMINOPHEN 500 MG TABLET PO ONE (17:18)
[2024-05-28 17:29] LABS: BASOPHILS # (AUTO) 0.03 K/uL (0.00-0.20); BASOPHILS % (AUTO) 0.3 % (0.0-5.0); EOSINOPHILS # (AUTO) 0.13 K/uL (0.00-0.70); EOSINOPHILS % (AUTO) 1.2 % (0.0-8.0); HEMATOCRIT 33.6 % (36-48); IMMATURE GRANULOCYTE ABSOLUTE 0.05 K/uL (0-1); MEAN CORPUSCULAR HEMOGLOBIN 31.7 pg (27.0-33.0); MEAN CORPUSCULAR HGB CONC 33.6 g/dL (32.0-36.0); MEAN CORPUSCULAR VOLUME 94.1 fL (79-99); MONOCYTES # (AUTO) 0.1 K/uL (0.1-1.0); MONOCYTES % (AUTO) 0.8 % (3.0-13.0); NEUTROPHILS # (AUTO) 9.9 K/uL (1.8-7.7); NEUTROPHILS % (AUTO) 88.3 % (40.0-77.0); PLATELET COUNT (AUTO) 212 K/uL (130-400); RED BLOOD CELL COUNT(AUTO) 3.57 MIL/uL (4.00-5.50); RED CELL DISTRIBUTION WIDTH 13.2 % (11.0-15.5); WHITE BLOOD COUNT (AUTO) 11.2 K/uL (4.8-10.8)
[2024-05-28 17:40] LABS: CREATININE 1.2 mg/dL (0.5-1.0); POTASSIUM 3.9 mmol/L (3.5-5.1)
[2024-05-28 18:07] VITALS: TEMP 102.1
[2024-05-28 18:13] LABS: COVID19 (SARS ANTIGEN RAPID) PRESUMPTIVE NEGATIVE (NEGATIVE); INFLUENZA TYPE A Negative For Type A (NEGATIVE); INFLUENZA TYPE B Negative For Type B (NEGATIVE)
--- NOTE | 2024-05-28 19:02 | HMCIMG ---
PORTABLE CHEST RADIOGRAPH INDICATION: SOB COMPARISON: 11/19/2021 FINDINGS: Heart size is normal. Mild calcific plaque is present along the aortic arch luna. The pulmonary vascularity and regan appear normal. No abnormal pulmonary parenchymal opacity or consolidation identified. No significant pleural effusion noted. No pneumothorax detected. IMPRESSION: No radiographic evidence for any acute cardiopulmonary process.
[2024-05-28 20:39] LABS: APPEARANCE,URINE CLOUDY (CLEAR); BILIRUBIN,URINE NEGATIVE (NEGATIVE); COLOR,URINE LIGHT-YELLOW (YELLOW); GLUCOSE, URINE (UA) NEGATIVE (NEGATIVE); KETONES,URINE NEGATIVE (NEGATIVE); LEUKOCYTE ESTERASE ,URINE 500 Leu/uL (NEGATIVE); NITRATE,URINE 2+ (NEGATIVE); OCCULT BLOOD,URINE SMALL (NEGATIVE); PROTEIN,URINE 100 mg/dL (NEGATIVE); UROBILINOGEN,URINE 0.2 mg/dL (0.2-1.0)
[2024-05-28 20:40] LABS: ADD UA MICROSCOPIC YES
[2024-05-28 20:42] LABS: BACTERIA,URINE RARE /HPF (None Seen); SQUAMOUS EPITHELIAL CELL,UR RARE /HPF (0-2); UNCLASSIFIED CRYSTAL 2 /HPF (None Seen); WBC,URINE TNTC /HPF (0-1); YEAST,URINE BUDDING FEW /HPF (None Seen)
[2024-05-28] MEDS: cefTRIAXone 1G VIAL IV ONE (21:57)
[2024-05-28] MEDS ORDERED: CEPH500T PO (22:02)
--- NOTE | 2024-05-28 22:07 | NUR ---
SPOKE TO GEOVANNA DOHERTY SON; PER SON PATIENTS SPOUSE IS UNABLE TO TRANSFER PATIENT BACK TO FACILITY; PER PATIENT SON CLOSEST RELATIVE ASIDE FROM HIMSELF RESIDES IN [place].
[2024-05-28 22:16] VITALS: BP 150/74; PULSE 88; RESP 20; TEMP 98.9; O2SAT 95
--- NOTE | 2024-05-28 23:15 | NUR ---
[facility] TRANSFER SET UP AT THIS TIME; SPOKE TO DISPATCH
--- NOTE | 2024-05-29 02:32 | NUR ---
[facility] HERE FOR TRANSFER
--- NOTE | 2024-05-29 06:59 | EKG ---
[facility] Test Date: 2024-05-28 Test Time: 17:20:55 Pat Name: TARUN DOHERTY Department: [facility] Room: Gender: F Contact [employer] Edge Buffer: [phone] : 1940 Requested By: BHAVIK BECK Order Number: [id number] Reading MD: Mandie Willingham Measurements Intervals [place] Rate: 86 P: 15 SD: 112 QRS: 26 QRSD: 97 T: -21 QT: 359 QTc: 432 Interpretive Statements Sinus rhythm Borderline T abnormalities, diffuse leads Compared to ECG 02/22/2020 11:58:42 T-wave abnormality now present Ventricular premature complex(es) no longer present Electronically Signed On 05-29-2024 09:49:38 CHOCOLATE FINISHER by Mandie Willingham Please click the below link to view image of tracing.
== END 2024-05-29 02:36 | disposition home or self-care (01) ==
LOC: EDH 16:15
DX: N30.01 Acute cystitis with hematuria (principal); I12.9 Hypertensive chronic kidney disease with stage 1 through stage 4 chronic kidney disease, or unspecified chronic kidney disease; E11.22 Type 2 diabetes mellitus with diabetic chronic kidney disease; N18.30 Chronic kidney disease, stage 3 unspecified; Z20.822 Contact with and (suspected) exposure to COVID-19; R25.1 Tremor, unspecified; M79.651 Pain in right thigh; M79.604 Pain in right leg; E78.00 Pure hypercholesterolemia, unspecified; F41.9 Anxiety disorder, unspecified; Z88.2 Allergy status to sulfonamides; Z88.1 Allergy status to other antibiotic agents; Z88.0 Allergy status to penicillin; Z88.5 Allergy status to narcotic agent; Z88.8 Allergy status to other drugs, medicaments and biological substances; Z79.1 Long term (current) use of non-steroidal anti-inflammatories (NSAID); Z79.899 Other long term (current) drug therapy; Z79.82 Long term (current) use of aspirin
CPT/HCPCS: 99285; 96365; 71045; 96361; 87426; 84484; 80048; 85025; 87040 ×2; 87086 ×3; 87186 ×2; 87804 ×2; 81001; 36415; 93005; J7030; J0696

== ENCOUNTER 2024-12-01 09:19 | Emergency (ER) | payer OTHER, MEDICARE ==
[~2024-12-01] VITALS: Ht 154.9 cm; Wt 81.6 kg
[~2024-12-01 09:19] MED LIST changes: +CEPH500T PO; -LATA2.5D14 OP; +LATA2.5D7 OP
--- NOTE | 2024-12-01 09:55 | EKG ---
[facility] Test Date: 2024-12-01 Test Time: 09:49:33 Pat Name: TARUN DOHERTY Department: [facility] Room: Gender: F Town Manager: [phone] : 1940 Requested By: MERE GARCIA Order Number: [id number] Reading MD: Casa Monteor Measurements Intervals [place] Rate: 67 P: 0 DE: 0 QRS: 40 QRSD: 97 T: 8 QT: 410 QTc: 432 Interpretive Statements Sinus rhythm Ventricular premature complex Low voltage, precordial leads Compared to ECG 05/28/2024 17:20:55 Junctional rhythm now present Ventricular premature complex(es) now present Low QRS voltage now present Sinus rhythm no longer present T-wave abnormality no longer present Electronically Signed On 12-01-2024 19:51:10 CDT by Casa Montero Please click the below link to view image of tracing.
[2024-12-01] MEDS: 0.9%NACL 1000ML 1,000 ML IV ONE (09:57)
[2024-12-01 10:04] LABS: IMMATURE GRANULOCYTE ABSOLUTE 0.02 K/uL (0-1); NUCLEATED RED BLOOD CELLS 0.0 % (0.0-0.19); PLATELET COUNT (AUTO) 243 K/uL (130-400); RED BLOOD CELL COUNT(AUTO) 3.48 MIL/uL (4.00-5.50); RED CELL DISTRIBUTION WIDTH 12.9 % (11.0-15.5); WHITE BLOOD COUNT (AUTO) 6.2 K/uL (4.8-10.8)
[2024-12-01 10:11] LABS: CREATININE 1.1 mg/dL (0.5-1.0); GLOMERULAR FILTR. RATE CALC 50.0 mL/min (>90); GLUCOSE,RANDOM 109.0 mg/dL (70-105); SODIUM SERUM 138.0 mmol/L (136-145); UREA NITROGEN, BLOOD 14.0 mg/dL (7-18)
--- NOTE | 2024-12-01 10:14 | ERN ---
General Chief Complaint: Abdominal Pain Stated Complaint: ABDMINAL PAIN Time Seen by MD: 09:21 Source: patient, family History of Present Illness Initial Comments Patient is a an 84-year-old female coming in complaining of epigastric discomfort. Patient states that this has been ongoing for a couple of days. He was seen by his PCP and prescribed antibiotics but states that the pain has not subsided. She states that the pain is localized to the epigastric region radiates to the left upper quadrant area. No fever or chills Allergies: Coded Allergies: Nitrofurantoin Macrocrystal (Unverified Allergy, Intermediate, RASH, ITCHING, 08/27/11) ciprofloxacin (Unverified Allergy, Intermediate, RASH, ITCHING, 08/27/11) moxifloxacin HCl (Unverified Allergy, Intermediate, RASH,ITCHING, 08/27/11) codeine (Unverified Allergy, Mild, FAINTING, 08/27/11) amoxicillin (Unverified Allergy, Unknown, 06/22/19) escitalopram (Unverified Allergy, Unknown, 07/25/23) linaclotide (Unverified Allergy, Unknown, 07/25/23) loratadine (Unverified Allergy, Unknown, 07/25/23) pseudoephedrine (Unverified Allergy, Unknown, 07/25/23) sulfamethoxazole (Unverified Allergy, Unknown, 06/22/19) trimethoprim (Unverified Allergy, Unknown, 06/22/19) Home Meds Active Scripts Cephalexin (Cephalexin) 500 Mg Tablet, 1 TAB PO TID for 7 Days, #21 TAB 0 Refills Prov:BHAVIK BECK NP 05/28/24 Ibuprofen (Ibuprofen) 400 Mg Tablet, 400 MG PO TIDP, #30 TAB Prov:LAWRENCE DAMON MD 05/21/22 Reported Medications Ergocalciferol (Vitamin D2) (Vitamin D2) 1,250 Mcg (88641 Unit) Capsule, 1250 MCG PO QWEEK, CAP 07/25/23 Quetiapine Fumarate (Quetiapine Fumarate) 50 Mg Tablet, 50 MG PO HS, TAB 07/25/23 Pantoprazole Sodium (Pantoprazole Sodium) 40 Mg Granpkt.dr, 40 MG PO AD PRN for ABDOMINAL PAIN, PACK 07/25/23 Meloxicam (Meloxicam) 15 Mg Tablet, 15 MG PO DAILY, TAB 07/25/23 Lorazepam (Ativan) 0.5 Mg Tablet, 0.5 MG PO AD PRN for ANXIETY/AGITATION, TAB 07/25/23 Latanoprost (Latanoprost) 0.005 % Drops, 2.5 ML OP BID, DROP 07/25/23 Gabapentin (Neurontin) 100 Mg Capsule, 100 MG PO TID PRN for PAIN, CAP 07/25/23 Gabapentin (Neurontin) 300 Mg Capsule, 300 MG PO HS, CAP 07/25/23 Furosemide (Furosemide) 20 Mg Tablet, 20 MG PO DAILY, TAB 07/25/23 Brimonidine Tartrate/Timolol (Brimonidine-Timolol 0.2%-0.5%) 0.2 %-0.5 % Drops, 5 ML OP BID, DROP 07/25/23 Cetirizine HCl (Cetirizine HCl) 10 Mg Tablet, 10 MG PO DAILY, TAB 02/23/20 Hydralazine HCl (Hydralazine HCl) 25 Mg Tablet, 25 MG PO BID, TAB 02/23/20 Omeprazole (Omeprazole) 20 Mg Tablet.dr, 20 MG PO DAILY, TAB 02/23/20 Aspirin (Aspir 81) 81 Mg Tablet.dr, 81 MG PO DAILY, TAB 06/22/19 Tramadol Hcl (Tramadol HCl) 50 Mg Tablet, 50 MG PO DAILY, TAB 06/22/19 Furosemide (Furosemide) 20 Mg Tablet, 20 MG PO BID, TAB 06/22/19 Rosuvastatin Calcium (Rosuvastatin Calcium) 10 Mg Tablet, 10 MG PO DAILY, TAB 06/22/19 Nitroglycerin (Nitroglycerin) 0.4 Mg Tab.subl, 0.4 MG SL AD PRN for CHEST PAIN, TAB.SL 06/22/19 Ferrous Sulfate (Iron) 325 Mg Tablet, 325 MG PO DAILY, TAB 06/22/19 Alprazolam (Alprazolam) 0.25 Mg Tablet, 1-2 TAB PO BID PRN for ANXIETY/AGITATION, TAB 06/22/19 Past Medical History Past Medical History: Anemia, Dementia, Glaucoma, Hypertension Medical History Other: VIT D DEF, HARD OF HEARING Past Surgical History: Cholecystectomy Surgical History Other: R KNEE SX Social History Social History: Lives in Assisted Living Female( History) History: Not Applicable ROS Dictation CONSTITUTIONAL: No chills, no fever, no weakness, no diaphoresis, no malaise. HEAD/FACE: No signs of trauma. EENT: No eye pain, no blurred vision, no tearing, no double vision, no ear pain, no ear discharge, no nose pain, no nasal congestion, no throat pain, no throat swelling, no mouth pain. RESPIRATORY: No cough, no orthopnea, no SOB, no stridor, no wheezing. CARDIOVASCULAR: No chest pain, no edema, no palpitations, no syncope. GASTROINTESTINAL/ABDOMINAL: abdominal pain, no constipation, no diarrhea, no nausea, no vomiting. GENITOURINARY: No abnormal discharge, no dysuria, no frequent urination, no hematuria. No complaints of pain in the genitals. MUSCULOSKELETAL: No back pain, no gout, no joint pain, no joint swelling, no muscle pain, no muscle stiffness, no neck pain. INTEGUMENTARY: No change in color, no change in hair/nails, no dryness, no lesion, no lumps, no rash. NEUROLOGICAL/PSYCH: No anxiety, not depressed, no emotional problem, no headache, no numbness, no pre-existing deficit, no history of seizures, no tremors, no weakness. HEMATOLOGIC/LYMPHATIC: Not anemic, no history of blood clots, no apparent bleeding, no bruising, glands not swollen. All Systems Negative, Except as Noted. Physical Exam Physical Exam Dictation VITAL SIGNS: Reviewed. GENERAL APPEARANCE: Alert, oriented x3, no acute distress, obese. HEAD AND FACE: Non-traumatic. EYES: PERRL, pink conjunctivas, eyelid no trauma, anterior chamber clear. EARS: Pinnas intact and no signs of trauma or erythema. Ear canals clear and no discharge. TMs no erythema. NOSE: No discharge, no bleeding. OROPHARYNX: Mouth normal, teeth no caries, tongue pink. Pharynx clear, no erythema. Tonsils no exudates, no abscesses noted. Mucous membrane moist. NECK: Supple, non-tender, no thyromegaly, no masses, no JVD, no bruits. BREAST: Deferred. CHEST: No tenderness, no crepitus, no paradoxical movement, no retractions. LUNGS: Clear, well-ventilated, symmetric, no rales, no wheezing, no rhonchi, no stridor, good breath sounds bilaterally. HEART: Regular rate, regular rhythm, no murmur, no gallops. VASCULAR: No peripheral edema. ABDOMEN: Soft, positive bowel sounds, nondistended, no guarding, nontender, no rebound, no masses no hepatomegaly, no splenomegaly, no Garcia's sign, no hernias. RECTAL: Deferred. GENITAL: Deferred. NEUROLOGICAL: Normal speech, gross motor function intact, gross sensory function intact. MUSCULOSKELETAL: Neck nontender, full range of motion, back nontender, full range of motion. EXTREMITIES: Nontender, full range of motion. SKIN: Color pink, dry, no turgor, no rash, no lacerations, no abrasions, no contusions. LYMPHATICS: Deferred. Results Laboratory and Microbiology Lab and Micro Result Laboratory Tests Test 12/01/24 09:50 12/01/24 11:51 White Blood Count 6.2 K/uL (4.8-10.8) Red Blood Count 3.48 MIL/uL (4.00-5.50) L Hemoglobin 10.9 g/dL (12.0-16.0) L Hematocrit 32.5 % (36-48) L Mean Corpuscular Volume 93.4 fL (79-99) Mean Corpuscular Hemoglobin 31.3 pg (27.0-33.0) Mean Corpuscular Hemoglobin Concent 33.5 g/dL (32.0-36.0) Red Cell Distribution Width 12.9 % (11.0-15.5) Platelet Count 243 K/uL (130-400) Mean Platelet Volume 9.3 fL (7.5-10.5) Immature Granulocyte % (Auto) 0.3 % (0-1) Neutrophils (%) (Auto) 59.8 % (40.0-77.0) Lymphocytes (%) (Auto) 31.1 % (21.0-51.0) Monocytes (%) (Auto) 5.4 % (3.0-13.0) Eosinophils (%) (Auto) 2.9 % (0.0-8.0) Basophils (%) (Auto) 0.5 % (0.0-5.0) Neutrophils # (Auto) 3.7 K/uL (1.8-7.7) Lymphocytes # (Auto) 1.9 K/uL (1.0-4.8) Monocytes # (Auto) 0.3 K/uL (0.1-1.0) Eosinophils # (Auto) 0.18 K/uL (0.00-0.70) Basophils # (Auto) 0.03 K/uL (0.00-0.20) Absolute Immature Granulocyte (auto 0.02 K/uL (0-1) Nucleated Red Blood Cells 0.0 % (0.0-0.19) Sodium Level 138 mmol/L (136-145) Potassium Level 4.2 mmol/L (3.5-5.1) Chloride Level 101 mmol/L (101-111) Carbon Dioxide Level 27 mmol/L (21-32) Blood Urea Nitrogen 14 mg/dL (7-18) Creatinine 1.1 mg/dL (0.5-1.0) H Glomerular Filtration Rate Calc 50 mL/min (>90) Random Glucose 109 mg/dL (70-105) H Total Calcium 9.6 mg/dL (8.5-10.1) Total Bilirubin 0.5 mg/dL (0.2-1.0) Aspartate Amino Transf (AST/SGOT) 22 U/L (10-37) Alanine Aminotransferase (ALT/SGPT) 29 U/L (12-78) Alkaline Phosphatase 70 U/L (50-136) Total Creatine Kinase 118 U/L (21-232) Troponin I High Sensitivity 14 ng/L (4-50) Total Protein 7.2 g/dL (6.0-8.3) Albumin 4.0 g/dL (3.5-5.0) Lipase 18 U/L (16-77) Urine Color COLORLESS (YELLOW) Urine Appearance CLEAR (CLEAR) Urine pH 7.0 (5.0-8.0) Urine Specific [place] 1.003 (1.001-1.031) Urine Protein 10 mg/dL (NEGATIVE) H Urine Glucose (UA) NEGATIVE mg/dL (NEGATIVE) Urine Ketones NEGATIVE mg/dL (NEGATIVE) Urine Occult Blood NEGATIVE (NEGATIVE) Urine Nitrate NEGATIVE (NEGATIVE) Urine Bilirubin NEGATIVE mg/dL (NEGATIVE) Urine Urobilinogen 0.2 mg/dL (0.2-1.0) Urine Leukocyte Esterase 25 Sammy/uL (NEGATIVE) H Urine RBC None /HPF (0-1) Urine WBC 0-1 /HPF (0-1) Urine Squamous Epithelial Cells RARE /HPF (0-2) Urine Bacteria RARE /HPF (None Seen) Labs Reviewed?: Yes EKG/XRAY/US/CT/MRI EKG Comment 12/01/2024 time 9:49 a.m. Ventricular rate [address] wave elevation or depression CT Scan Comment [facility] [address] [place] [address] IMAGING REPORT Signed PATIENT: TARUN DOHERTY MR#: [id number] : 1940 SEX: F AGE: 84 LOCATION: [facility] ORDER 2 STATUS: REG ER REPORT#: [id number] SERVICE 2 REASON: ABD PAIN ORDERING PHYSICIAN: MERE GARCIA MD PROCEDURE: ABD PEL WO - CT ABDOMEN/PELVIS W/O CONTRAST EXAM: CT Abdomen and Pelvis without IV contrast CLINICAL HISTORY: ABD PAIN TECHNIQUE: Axial computed tomography images of the abdomen and pelvis without intravenous contrast. CT scan performed according to ALARA. Automated exposure control used during exam. The examination is limited as the images (axial/sagittal/coronal series) are incomplete. CONTRAST: without intravenous contrast. COMPARISON: None provided. FINDINGS: LUNG BASES: The lung bases appear clear. No pleural effusions are seen. LIVER: Unremarkable. GALLBLADDER AND BILE DUCTS: The gallbladder appears within normal limits. No radioopaque gallstones are seen. No biliary ductal dilatation is evident. PANCREAS: Unremarkable. SPLEEN: Unremarkable. ADRENAL GLANDS: Unremarkable. KIDNEYS, URETERS, AND BLADDER: The kidneys appear within normal limits. Bilateral renal cysts may be further characterized with ultrasound imaging. There is no hydronephrosis or hydroureter. No urinary calculi are seen. STOMACH AND BOWEL: Unremarkable appearance of the stomach and bowel. No evidence of bowel obstruction. Colonic diverticulosis without evidence for diverticulitis. No evidence suggesting enteritis or colitis. APPENDIX: No evidence of acute appendicitis on CT examination. PERITONEUM: No free fluid. No free air. LYMPH NODES: No lymphadenopathy is evident. REPRODUCTIVE: The uterus is surgically absent. VASCULATURE: No evidence of abdominal aortic aneurysm. BONES: No aggressive appearing osseous lesion. No acute osseous pathology evident. IMPRESSION: Limited examination as described above. Allowing for this, there is no acute intra-abdominal or pelvic abnormality. /[place] DICTATED BY: FAM ELI Jr., MD DATE: 12/01/241211 ELECTRONICALLY SIGNED BY: FAM ELI Jr., MD DATE: 12/01/24 121 [facility] MDM: Differential diagnosis: uti, gastritis, GERD, Rationale: Tests considered and ordered secondary to shared decision making include: Previous outside records reviewed: Old ER visits. Risk of complication and/or morbidity or mortality of patient management: None Medications-Per medication reconciliation Need for hospitalization: Patient does not meet criteria for hospitalization. Need for emergency major/minor surgery: No Patient is a an 84-year-old female coming in complaining of abdominal disc omfort. Laboratory workup within normal limits. Per symptoms have subsided with GI cocktail. Patient will be discharged in stable condition with a diagnosis of gastritis. ED Course Orders Procedure Category Date Status Time Cbc With Differential LAB 12/01/24 Complete 09:23 Comprehensive LAB 12/01/24 Complete Metabolic Panel 09:23 Troponin I High LAB 12/01/24 Complete Sensitivity 09:23 Urinalysis Profile LAB 12/01/24 Complete 09:23 12 Lead Ekg Tracing- EKG 12/01/24 Complete Technical 09:23 0.9%Nacl 1000ml (Ns PHA 12/01/24 Complete 1000ml) 09:30 Ondansetron 4mg Inj PHA 12/01/24 Complete (Zofran 4mg Inj) 09:30 Pantoprazole 40mg Inj PHA 12/01/24 Complete (Protonix 40mg Inj 09:30 Creatine Kinase, Total LAB 12/01/24 Complete 09:23 Ct Abdomen/Pelvis W/O CT 12/01/24 Resulted Contrast 09:23 Lipase LAB 12/01/24 Complete 09:23 Current Medications Medications (Trade) Dose Ordered Sig/Adela Route PRN Reason Start Time Stop Time Status Last Admin Dose Admin Ondansetron HCl (zoFRAN 4MG INJ) 4 mg ONCE ONCE IVP 12/01/24 09:30 12/01/24 09:38 DC 12/01/24 09:57 Pantoprazole Sodium (PROTonix 40MG INJ) 40 mg ONCE ONCE IVP 12/01/24 09:30 12/01/24 09:38 DC 12/01/24 09:57 Sodium Chloride 1,000 ml @ 0 mls/hr ONCE ONCE IV 12/01/24 09:30 12/01/24 09:38 DC 12/01/24 09:57 Vital Signs Date Time Temp Pulse Resp B/P (MAP) Pulse Ox O2 Delivery O2 Flow Rate FiO2 12/01/24 12:32 97.9 59 16 149/57 97 Room Air* 0 21 12/01/24 11:19 97.9 60 16 171/65 97 Room Air* 0 21 12/01/24 09:59 97.9 60 16 189/68 97 Room Air* 0 21 12/01/24 09:27 97.9 61 16 185/60 97 Room Air* 0 21 12/01/24 09:21 97.9 61 16 185/60 97 Room Air 0 DX & DISP Disposition: Discharge Departure Impression: Primary Impression: GERD (gastroesophageal reflux disease) Additional Impression: UTI (urinary tract infection) Condition: Stable Scripts Mag Hydrox/Al Hydrox/Simeth (Maalox Maximum Strength Susp) 400 Mg-400 Mg-40 Mg/5 Ml Oral.susp 20 ML PO Q6H for 5 Days, #355 ML 0 Refills Prov: MERE GARCIA MD 12/01/24 Additional Instructions: FOLLOW-UP WITH PRIMARY CARE PROVIDER IN 1 TO 2 DAYS. TAKE MEDICATIONS DIRECTED HERE IN THE EMERGENCY ROOM. OKAY TO CONTINUE HOME MEDICATIONS UNLESS OTHERWISE DISCUSSED DURING YOUR VISIT IN THE EMERGENCY ROOM TODAY. RETURN TO YOUR NEAREST EMERGENCY ROOM IF SYMPTOMS WORSEN OR IF THERE IS NO IMPROVEMENT. CALL 911 IF YOU NEED IMMEDIATE ASSISTANCE. TAKE TYLENOL FBNY-IAR-BRYPFOH NEEDED AND IF NO CONTRAINDICATIONS ARE PRESENT. INCREASE ORAL HYDRATION. A WOUND CULTURE OR URINE CULTURE WAS ORDERED HERE IN THE EMERGENCY ROOM DEPARTMENT PLEASE FOLLOW-UP WITH PRIMARY CARE PROVIDER AND ADVISE THEM TO GET REPORTS FROM OUR FACILITY. IF YOU HAD ANY LAURA WRAP/SPLINTS THAT WERE APPLIED HERE, PLEASE DO NOT REMOVE THEM UNTIL YOU SEE YOUR PRIMARY CARE OR SPECIALTY. Referrals: Referrals: SHASHI CHOUDHARY MD (PCP) Time of Disposition: 12:48 MERE GARCIA MD Dec 01, 2024 10:14
[2024-12-01 10:16] LABS: ASPARTATE AMINOTRANSFERASE 22.0 U/L (10-37); CREATINE KINASE, TOTAL 118.0 U/L (21-232); TOTAL PROTEIN, SERUM 7.2 g/dL (6.0-8.3)
--- NOTE | 2024-12-01 11:13 | HMCIMG ---
EXAM: CT Abdomen and Pelvis without IV contrast CLINICAL HISTORY: ABD PAIN TECHNIQUE: Axial computed tomography images of the abdomen and pelvis without intravenous contrast. CT scan performed according to ALARA. Automated exposure control used during exam. The examination is limited as the images (axial/sagittal/coronal series) are incomplete. CONTRAST: without intravenous contrast. COMPARISON: None provided. FINDINGS: LUNG BASES: The lung bases appear clear. No pleural effusions are seen. LIVER: Unremarkable. GALLBLADDER AND BILE DUCTS: The gallbladder appears within normal limits. No radioopaque gallstones are seen. No biliary ductal dilatation is evident. PANCREAS: Unremarkable. SPLEEN: Unremarkable. ADRENAL GLANDS: Unremarkable. KIDNEYS, URETERS, AND BLADDER: The kidneys appear within normal limits. Bilateral renal cysts may be further characterized with ultrasound imaging. There is no hydronephrosis or hydroureter. No urinary calculi are seen. STOMACH AND BOWEL: Unremarkable appearance of the stomach and bowel. No evidence of bowel obstruction. Colonic diverticulosis without evidence for diverticulitis. No evidence suggesting enteritis or colitis. APPENDIX: No evidence of acute appendicitis on CT examination. PERITONEUM: No free fluid. No free air. LYMPH NODES: No lymphadenopathy is evident. REPRODUCTIVE: The uterus is surgically absent. VASCULATURE: No evidence of abdominal aortic aneurysm. BONES: No aggressive appearing osseous lesion. No acute osseous pathology evident. IMPRESSION: Limited examination as described above. Allowing for this, there is no acute intra-abdominal or pelvic abnormality. /[place]
[2024-12-01 12:16] LABS: APPEARANCE,URINE CLEAR (CLEAR); GLUCOSE, URINE (UA) NEGATIVE (NEGATIVE); LEUKOCYTE ESTERASE ,URINE 25 Leu/uL (NEGATIVE); NITRATE,URINE NEGATIVE (NEGATIVE); OCCULT BLOOD,URINE NEGATIVE (NEGATIVE)
[2024-12-01 12:19] LABS: ADD UA MICROSCOPIC YES
[2024-12-01 12:25] LABS: SQUAMOUS EPITHELIAL CELL,UR RARE /HPF (0-2)
[2024-12-01 12:32] VITALS: BP 149/57; PULSE 59; RESP 16; TEMP 97.9; O2SAT 97
[2024-12-01] MEDS ORDERED: MAG-55 PO (12:49)
== END 2024-12-01 12:52 | disposition home or self-care (01) ==
LOC: EDH 09:19
DX: K21.9 Gastro-esophageal reflux disease without esophagitis (principal); N39.0 Urinary tract infection, site not specified; F03.90 Unspecified dementia, unspecified severity, without behavioral disturbance, psychotic disturbance, mood disturbance, and anxiety; I10 Essential (primary) hypertension; Z79.1 Long term (current) use of non-steroidal anti-inflammatories (NSAID); Z79.82 Long term (current) use of aspirin; Z79.899 Other long term (current) drug therapy; Z88.0 Allergy status to penicillin; Z88.1 Allergy status to other antibiotic agents; Z88.2 Allergy status to sulfonamides; Z88.5 Allergy status to narcotic agent; Z90.49 Acquired absence of other specified parts of digestive tract
CPT/HCPCS: 99285; 74176; 96374; 96361; 96375; 82550; 84484; 80053; 83690; 85025; 81001; 36415; 93005; J7030; J2405; J2470

== ENCOUNTER → 2025-03-14 | Outpatient (CLI) | payer OTHER, MEDICARE ==
[~2025-03-14] MED LIST changes: +MAG-55 PO; -ROSU10TA72 PO; +ROSU10TA98 PO
--- NOTE | 2025-03-15 15:00 | HMCSR ---
APPROVED REPORT EXAM: Two-dimensional and M-mode echocardiogram with Doppler and color Doppler. INDICATION ICD: Hypertension 2D Dimensions RVDd 3.4 cm LVEF(%) 65.0 (>50%) LVED Vol(simp.) 61.0 mL IVSd 0.8 (0.7-1.1cm) LA (2D) 4.0 (1.6-4.0cm) LVES Vol(simp.) 27.0 mL LVDd 4.7 (3.8-5.6cm) Ao Root(2D) 2.6 (2.0-3.7cm) LVEF(%, simp.) 56 % PWd 0.6 (0.7-1.1cm) LVOT diam 2.0 (1.8-2.4cm) LA ESV INDEX (BP) 30.61 mL/m2 IVSs 1.1 cm LVDs 3.7 (2.5-4.0cm) PWs 1.2 cm M-Mode Dimensions EPSS 0.3 cm LA (MM) 3.6 (1.6-4.0cm) Ao Root(MM) 3.0 (2.0-3.7cm) Aortic Valve AoV Vmax 1.6 m/s Ao Peak GR 10.8 mmHg LVOT Vmax 1.3 m/s AoV VTI 0.3 m Ao Mean GR 6.0 mmHg LVOT VTI 0.26 m MITRA (VMAX) 2.49 cm2 MITRA (VTI) 2.5 cm2 Mitral Valve MV E Vmax 72.4 cm/s DECEL Time 179 ms MV A Vmax 99.1 cm/s P 1/2 T 73 ms E/A ratio 0.7 MVA (PHT) 3.0 cm2 TDI E/E' Medial 9.0 E/E' Lateral 8.0 Medial E' Peak V 8.03 cm/s Lateral E' Peak V 9.00 cm/s Pulmonary Valve PV Vmax 1.2 m/s PV Mean GR 3.6 mmHg PV Peak GR 6.2 mmHg Tricuspid Valve TR Vmax 1.8 m/s RAP (EST) 3 mmHg RVSP 19.7 mmHg TR Peak GR 16.7 mmHg Left Ventricle The left ventricle is normal size. There is normal LV segmental wall motion. There is normal left ventricular wall thickness. LVEF is 55-60%. No left ventricle thrombus noted on this study. Stage I diastolic dysfunction. Right Ventricle The right ventricle is normal size. The right ventricular systolic function is normal. Atria The left atrium size is normal. The right atrium size is normal. Aortic Valve Aortic valve is trileaflet and open well. No aortic regurgitation is present. There is no aortic valvular stenosis. Mitral Valve The mitral valve is normal in structure. There is trace of mitral valve regurgitation noted. There is no mitral valve stenosis. Tricuspid Valve The tricuspid valve is normal in structure. There is trace tricuspid valve regurgitation noted. Pulmonic Valve The pulmonary valve is normal in structure. There is no pulmonic valvular regurgitation. Great Vessels The aortic root is normal in size. The IVC is normal in size and collapses >50% with inspiration. Pericardium There is no pericardial effusion. Other Information Quality : Fair Conclusion The left ventricle is normal size. LVEF is 55-60%. Stage I diastolic dysfunction. The right ventricle is normal size. The left atrium size is normal. Aortic valve is trileaflet and open well. No aortic regurgitation is present. The mitral valve is normal in structure. There is trace of mitral valve regurgitation noted. There is no mitral valve stenosis. There is trace tricuspid valve regurgitation noted. The pulmonary valve is normal in structure. The aortic root is normal in size. The IVC is normal in size and collapses >50% with inspiration. There is no pericardial effusion.
== END | disposition home or self-care (01) ==
LOC: RAH 12:13
PROVIDERS: ATTEND Internal Medicine Cardiovascular Disease
DX: I11.9 Hypertensive heart disease without heart failure (principal); D45 Polycythemia vera
CPT/HCPCS: 93306